=== PATIENT | male | born 1990 | race Caucasian/White ===

== ENCOUNTER 2016-05-29 08:58 | Emergency (ER) | payer OTHER ==
[~2016-05-29] VITALS: Wt 120.0 kg
[2016-05-29] MEDS ORDERED: IBUP-1542 PO (09:15)
[2016-05-29] MEDS ORDERED: PEN500 PO (09:15)
[2016-05-29] MEDS ORDERED: GUAI-637 PO (09:17)
[2016-05-29] MEDS ORDERED: IBUPROFEN 800 MG TAB PO ONE (09:30)
--- NOTE | 2016-05-29 09:33 | ERD ---
ER Documentation Chief Complaint Date/Time DATE: 05/29/16 TIME: 09:10 Chief Complaint SORE THROAT X 3 DAYS HPI 26 y/o male presents to ED for sore throat for 3 days. Pain was described as achy, nonradiating, 7/10 in rate. Also reports productive cough, congestion for 3 days. Exposed to mother who is the same symptoms. Did not take any medications for his symptoms. Denies headache, loss of consciousness, dizziness, blurry vision, changes in vision, photophobia, facial pain, ear pain, difficulty swallowing, neck pain, neck stiffness, shoulder pain, chest pain, hemoptysis, abdominal pain, back pain , loss of appetite, nausea, vomiting, hematochezia, diarrhea, constipation, urinary symptoms, bladder and bowel incontinences, extremity weakness, extremity tenderness, numbness or tingling sensation, difficulty walking, recent travel, recent antibiotic use in the last 3 months, fever, chills. 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 Smokes 1 pack of cigarette a week. Drinks 6 pack of beer a week. Smokes marijuana, also admits that sometimes he just an edible marijuana. ROS All systems reviewed and are negative except as per history of present illness. Medications Home Meds Active Scripts Guaifenesin* (Robitussin*) 100 Mg/5 Ml Syrup, 100 MG PO Q4H Y for COUGH, #100 ML Prov:PASILABAN,KLAR F 05/29/16 Ibuprofen* (Motrin*) 600 Mg Tab, 600 MG PO Q6 Y for PAIN, #30 TAB Prov:PASILABAN,KLAR F 05/29/16 Penicillin V Potassium* (Penicillin V K*) 500 Mg Tab, 500 MG PO BID for 14 Days , TAB Prov:PASILABAN,KLAR F 05/29/16 Allergies Allergies: Coded Allergies: No Known Allergy (Unverified , 05/29/16) PMhx/Soc Denies Medical and Surgical Hx: pt denies Medical Hx, pt denies Surgical Hx Hx Alcohol Use: Yes (6 pack/ wk) Hx Substance Use: Yes (marijuana ) Hx Tobacco Use: Yes (pack/day) Smoking Status: Current every day smoker Physical Exam Vitals Vital Signs Date Time Temp Pulse Resp B/P Pulse Ox O2 Delivery O2 Flow Rate FiO2 05/29/16 09:01 99.0 129 18 131/89 99 Physical Exam CONSTITUTIONAL: Well-appearing; well-nourished; in no apparent distress. HEAD: Normocephalic; atraumatic. EYES: Conjunctiva clear, sclera non-icteric, EOM intact. PERRL Ears: Hearing intact. EACs clear, TMs non-bulging, non-inflamed, translucent & mobile, ossicles normal appearance, No obstructions, no erythema, no discharges Nose: No obstructions. No polyps. No external lesions. No external lesions, septum and turbinates normal. No rhinorrhea. No discharges. Frontal sinus is non -tender to palpation. Maxillary sinus is non-tender to palpation. Mild congestion. MOUTH: Moist mucous membranes, no lesion, no obstructions, no vesicles, no thrush, patent airway Throat: Uvula in midline and nondisplaced. Right tonsil is +2 with erythema, mild exudate. Left tonsil is +2 with erythema, mild exudate. Tolerating secretions well. No difficulty swallowing. Good gag reflex. Patent airway. Neck: Supple, without lesions, bruits, or adenopathy. No mass. Thyroid non- enlarged and non-tender to palpation. CHEST: Symmetrical chest. Respirations even and not labored. No retractions noted. CARDIOVASCULAR: Normal S1, S2. RRR. No murmurs, gallops. RESPIRATORY: Normal chest excursion with respiration; breath sounds clear and equal bilaterally; no wheezes, rhonchi, or rales. Breathing even and unlabored. Speaking in clear, full, and complete sentences w/ ease. ABDOMEN: Normal bowel sounds normal. Soft, round, non-distended, non-guarding, no tenderness, no rebound, no organomegaly, no masses, no pulsating abdominal mass. No hernia. No peritoneal signs. : No CVA tenderness. BACK: Symmetrical shoulder. Spine is midline without deformity, tenderness. No evidence of trauma or deformity. PELVIS: Stable pelvis. No evidence of trauma or deformity. MUSCULOSKELETAL: Normal gait and station. No misalignment, asymmetry, crepitation, defects, tenderness, masses, effusions, decreased range of motion, instability, atrophy or abnormal strength or tone in the head, neck, spine, ribs , pelvis or extremities. No calf tenderness. NEUROVASCULAR: Distal pulses are present. Pedal pulse are present, equal, and normal. Capillary refills are < 2 seconds. NEUROLOGIC: Alert and oriented x4. Speaks full and clear sentences. Cranial Nerves II-XII normal. Sensation to pain, touch, and proprioception normal. Grossly unremarkable. No neurologic deficits. Romberg test is negative. PSYCHOLOGICAL: The patients mood and manner are appropriate. No hallucinations , delusions. Not SI. Not HI. Has the capacity to decide for self SKIN: Normal for age and ethnicity; warm; dry; good turgor; no apparent lesions or exudates. No rashes, hives, discoloration. Intact. Procedures/MDM Examination: Unremarkable examination except mild congestion, tonsils are +2 bilaterally, with exudates. Disease process, medical treatment was explained to the patient and family member. They verbalized understanding and agreed with the medical treatment, and follow-up care. Treatment: Motrin Re-evaluation: Denies pain Consultation: None Differential diagnosis: Peritonsillar abscess versus strep pharyngitis versus viral pharyngitis versus sinusitis versus upper respiratory infection. Medical decision makin26 y/o male presents to ED for sore throat for 3 days. I have a low suspicion for peritonsillar abscess because patient's uvula is in midline and nondisplaced, tonsils are +2 bilaterally with exudates, no difficulty swallowing, tolerating secretions. Also have low suspicion for sinusitis due to patient is no frontal and maxillary sinus tenderness on palpation. Low suspicion for viral pharyngitis due to patient has exudates on his tonsils, reports chills last night. Final diagnosis of strep pharyngitis, prescribed with amoxicillin, Robitussin, Motrin Medications prescribed are the following: Penicillin, Robitussin, Motrin Patient and family member are made aware of the side effects and adverse reactions of the medications prescribed. Instructed on when to seek emergent and medical attention in case allergic/anaphylactic reactions or severe side effects and or adverse reactions to medications. Patient and family member verbalized understanding. Patient instructed Instructed to follow-up with his PCP in 24-48 hours. Instructed to Call 911 for chest pain, shortness of breath. Advised to come back here in ED as soon as possible for severity of symptoms which includes but not limited to: any new symptoms; shortness of breath/difficulty of breathing; cardiovascular changes; severe gastrointestinal symptoms; signs and symptoms of bleeding and or infection; signs of compartment syndrome/neurovascular changes; neurological changes/deficits. Patient and family member verbalized understanding. Upon discharge, patient is alert and oriented x 4, speaks full and clear sentences, tolerating secretions, no difficulty swallowing, denies pain, has no neurological deficits, has no neurovascular deficits, difficulty of breathing. Heart rate has regular rate and rhythm. Breathing even and unlabored. Lung sounds are clear to auscultation. Not in distress. Appears comfortable. Ambulatory with steady gait. Appears satisfied with care provided here in ED. Departure Diagnosis: Primary Impression: Strep pharyngitis Condition: Good Patient Instructions: Preventing Common Respiratory Infections, Pharyngitis, Strep (Presumed) Referrals: [facility] YOU HAVE RECEIVED A MEDICAL SCREENING EXAM AND THE RESULTS INDICATE THAT YOU DO NOT HAVE A CONDITION THAT REQUIRES URGENT TREATMENT IN THE EMERGENCY DEPARTMENT. FURTHER EVALUATION AND TREATMENT OF YOUR CONDITION CAN WAIT UNTIL YOU ARE SEEN IN YOUR DOCTORS OFFICE WITHIN THE NEXT 1-2 DAYS. IT IS YOUR RESPONSIBILITY TO MAKE AN APPOINTMENT FOR FOLOW-UP CARE. IF YOU HAVE A PRIMARY DOCTOR --you should call your primary doctor and schedule an appointment IF YOU DO NOT HAVE A PRIMARY DOCTOR YOU CAN CALL OUR PHYSICIAN REFERRAL HOTLINE AT IF YOU CAN NOT AFFORD TO SEE A PHYSICIAN YOU CAN CHOSE FROM THE FOLLOWING [facility] [address] [facility]. [facility] [address] [facility] [address] [facility] [address] [facility] [address] [facility]. [facility]. [address] Additional Instructions: Patient instructed Instructed to follow-up with his PCP in 24-48 hours. Instructed to Call 911 for chest pain, shortness of breath. Advised to come back here in ED as soon as possible for severity of symptoms which includes but not limited to: any new symptoms; shortness of breath/difficulty of breathing; cardiovascular changes; severe gastrointestinal symptoms; signs and symptoms of bleeding and or infection; signs of compartment syndrome/neurovascular changes; neurological changes/deficits. Patient and family member verbalized understanding. CLAUDIA ZHOU May 29, 2016 09:32
== END 2016-05-29 09:27 | disposition home or self-care (01) ==
LOC: FTE 08:58
DX: J02.0 Streptococcal pharyngitis (principal); F17.210 Nicotine dependence, cigarettes, uncomplicated
CPT/HCPCS: Z7502; Z7610; 99283

== ENCOUNTER 2016-10-08 13:12 | Emergency (ER) | payer OTHER ==
[~2016-10-08] VITALS: Ht 185.4 cm; Wt 100.5 kg
[~2016-10-08 13:12] MED LIST: GUAI-637 PO; IBUP-1542 PO; PEN500 PO
[2016-10-08 13:29] VITALS: Ht 185.4 cm; Wt 100.5 kg
[2016-10-08] MEDS ORDERED: ONDANSETRON 4 MG INJ IV STA (14:11)
[2016-10-08] MEDS ORDERED: SOD CHLORIDE 0.9% 1,000 ML IV STA (14:11)
[2016-10-08] MEDS ORDERED: morphine 4 MG/ML VIAL IV STA (14:11)
[2016-10-08] MEDS ORDERED: SOD CHLORIDE 0.9% 1,000 ML IV ONE (14:30)
[2016-10-08 14:52] LABS: ADD SCAN DIFF NO
[2016-10-08 14:53] LABS: BASOPHIL # 0.1 10^3/ul (0.0-0.1); BASOPHILS % 0.6 % (0.0-2.0); EOSINOPHILS # 0.1 10^3/ul (0.0-0.5); EOSINOPHILS % 0.5 % (0.0-7.0); HEMATOCRIT 48.3 % (42.0-52.0); HEMOGLOBIN 16.5 g/dl (14.0-18.0); LYMPHOCYTES # 2.9 10^3/ul (0.8-2.9); LYMPHOCYTES % 24.2 % (15.0-51.0); MEAN CORPUSCULAR HEMOGLOBIN 29.3 pg (29.0-33.0); MEAN CORPUSCULAR HGB CONC 34.2 g/dl (32.0-37.0); MEAN CORPUSCULAR VOLUME 85.6 fl (82.0-101.0); MONOCYTE # 1.1 10^3/ul (0.3-0.9); MONOCYTES % 9.1 % (0.0-11.0); NEUTROPHIL # 7.8 10^3/ul (1.6-7.5); PLATELET COUNT 337 10^3/UL (140-415); RED BLOOD COUNT 5.64 10^6/ul (4.70-6.10); RED CELL DISTRIBUTION WIDTH 11.7 % (11.5-14.5)
[2016-10-08 15:12] LABS: ALBUMIN 5.3 g/dl (3.3-4.9); ALBUMIN/GLOBULIN RATIO 1.76; BILIRUBIN,INDIRECT 0.6 mg/dl (0-1.1); BILIRUBIN,TOTAL 0.6 mg/dl (0.2-1.3); CALCIUM 9.7 mg/dl (8.4-10.2); CREATININE 0.94 mg/dl (0.61-1.24); POTASSIUM 3.9 mmol/L (3.5-5.1); TOTAL PROTEIN 8.3 g/dl (6.1-8.1)
[2016-10-08 15:13] LABS: ADD UMIC YES; URINE BILIRUBIN (Dip) NEGATIVE (NEGATIVE); URINE BLOOD (Dip) TRACE (NEGATIVE); URINE COLOR LT. YELLOW (YELLOW); URINE GLUCOSE (Dip) NEGATIVE (NEGATIVE); URINE KETONES (Dip) NEGATIVE (NEGATIVE); URINE LEUKOCYTE ESTERASE (Dip) NEGATIVE (NEGATIVE); URINE NITRITE (Dip) NEGATIVE (NEGATIVE); URINE TOTAL PROTEIN (Dip) NEGATIVE (NEGATIVE); URINE UROBILINOGEN (Dip) 0.2 E.U./dL (0.1-1.0)
[2016-10-08 15:20] LABS: URINE RBCS 0-2 /HPF (0)
[2016-10-08] MEDS ORDERED: KETOROLAC 30 MG INJ IV STA (15:29)
[2016-10-08] MEDS ORDERED: LOPERAMIDE 2 MG CAP PO ONE (15:30)
[2016-10-08] MEDS ORDERED: ONDA4TAB14 PO (15:35)
[2016-10-08] MEDS ORDERED: NAPR-688 PO (15:35)
[2016-10-08] MEDS ORDERED: DIPH1TAB PO (15:35)
--- NOTE | 2016-10-08 15:40 | ERD ---
ER Documentation Chief Complaint Date/Time DATE: 10/08/16 TIME: 15:39 Chief Complaint excessive diarrhea with blood in the stool x 1 month HPI 26 year old male with intermittent diarrhea x 1 month. This has been on and off. Patient drinks beer almost every day. Did not drink today. Occasional nausea. Today there was some blood streaking in his diarrhea with some mucus. Denies fevers, chils, malaise. No current abd pain. Has not been on antibiotics any time recently. ROS All systems reviewed and are negative except as per history of present illness. Medications Home Meds Active Scripts Naproxen* (Naproxen*) 500 Mg Tablet, 500 MG PO BID Y for PAIN, #20 TAB Prov:HUNG GUEVARA DO 10/08/16 Ondansetron (Ondansetron Odt) 4 Mg Tab.rapdis, 4 MG PO Q6H Y for NAUSEA AND/OR VOMITING, #10 TAB Prov:PAOLAHUNG DO 10/08/16 Diphenoxylate HCl/Atropine (Lomotil 2.5-0.025 mg Tablet) 1 Each Tablet, 1 TAB PO Q6H Y for DIARRHEA, #14 TAB Prov:HUNG GUEVARA DO 10/08/16 Discontinued Scripts Guaifenesin* (Robitussin*) 100 Mg/5 Ml Syrup, 100 MG PO Q4H Y for COUGH, #100 ML Prov:CLAUDIA ZHOU F 05/29/16 Ibuprofen* (Motrin*) 600 Mg Tab, 600 MG PO Q6 Y for PAIN, #30 TAB Prov:CLAUDIA ZHOU F 05/29/16 Penicillin V Potassium* (Penicillin V K*) 500 Mg Tab, 500 MG PO BID for 14 Days , TAB Prov:PASILABANJAVIAR F 05/29/16 Allergies Allergies: Coded Allergies: No Known Allergy (Unverified , 05/29/16) PMhx/Soc Medical and Surgical Hx: pt denies Medical Hx, pt denies Surgical Hx Hx Alcohol Use: No Hx Substance Use: Yes (marijuana ) Hx Tobacco Use: Yes (pack/day) Smoking Status: Current some day smoker Physical Exam Vitals Vital Signs Date Time Temp Pulse Resp B/P Pulse Ox O2 Delivery O2 Flow Rate FiO2 10/08/16 16:09 101 10/08/16 13:29 98.4 127 18 130/90 98 Physical Exam Const: [] No distress Head: Atraumatic Eyes: Normal Conjunctiva ENT: Normal External Ears, Nose and Mouth. Neck: Full range of motion..~ No meningismus. Resp: Clear to auscultation bilaterally Cardio: Regular tachycardia, no murmurs Abd: Soft, non tender, non distended. Normal bowel sounds Skin: No petechiae or rashes Back: No midline or flank tenderness Ext: No cyanosis, or edema Neur: Awake and alert and oriented x 3, no focal defecits. Psych: Normal Mood and Affect Result Diagram: 10/08/16 1430 10/08/16 1430 Results 24 hrs Laboratory Tests Test 10/08/16 14:30 10/08/16 14:45 White Blood Count 12.010^3/ul Red Blood Count 5.6410^6/ul Hemoglobin 16.5g/dl Hematocrit 48.3% Mean Corpuscular Volume 85.6fl Mean Corpuscular Hemoglobin 29.3pg Mean Corpuscular Hemoglobin Concent 34.2g/dl Red Cell Distribution Width 11.7% Platelet Count 97987^3/UL Mean Platelet Volume 9.0fl Neutrophils % 65.0% Lymphocytes % 24.2% Monocytes % 9.1% Eosinophils % 0.5% Basophils % 0.6% Nucleated Red Blood Cells % 0.0/100WBC Neutrophils # 7.810^3/ul Lymphocytes # 2.910^3/ul Monocytes # 1.110^3/ul Eosinophils # 0.110^3/ul Basophils # 0.110^3/ul Nucleated Red Blood Cells # 0.010^3/ul Sodium Level 138mmol/L Potassium Level 3.9mmol/L Chloride Level 103mmol/L Carbon Dioxide Level 23mmol/L Anion Gap 16 Blood Urea Nitrogen 15mg/dl Creatinine 0.94mg/dl Glucose Level 105mg/dl Calcium Level 9.7mg/dl Total Bilirubin 0.6mg/dl Direct Bilirubin 0.00mg/dl Indirect Bilirubin 0.6mg/dl Aspartate Amino Transf (AST/SGOT) 49IU/L Alanine Aminotransferase (ALT/SGPT) 102IU/L Alkaline Phosphatase 79IU/L Total Protein 8.3g/dl Albumin 5.3g/dl Globulin 3.00g/dl Albumin/Globulin Ratio 1.76 Lipase 49U/L Urine Color LT. YELLOW Urine Clarity CLEAR Urine pH 5.5 Urine Specific [place] <=1.005 Urine Ketones NEGATIVE Urine Nitrite NEGATIVE Urine Bilirubin NEGATIVE Urine Urobilinogen 0.2 E.U./dL Urine Leukocyte Esterase NEGATIVE Urine Microscopic RBC 0-2/HPF Urine Microscopic WBC 0-2/HPF Urine Epithelial Cells RARE Urine Hemoglobin TRACE Urine Glucose NEGATIVE% Urine Total Protein NEGATIVE Current Medications Medications (Trade) Dose Ordered Sig/Johny Route PRN Reason Start Time Stop Time Status Last Admin Dose Admin Sodium Chloride (NS) 1,000 ml @ 1,000 mls/hr Q1H STAT IV 10/08/16 14:11 10/08/16 15:10 DC 10/08/16 14:58 Morphine Sulfate (morphine) 4 mg ONCE STAT IV 10/08/16 14:11 10/08/16 14:14 DC Ondansetron HCl 4 mg 4 mg ONCE STAT IV 10/08/16 14:11 10/08/16 14:14 DC Sodium Chloride (NS) 1,000 ml @ 1,000 mls/hr Q1H ONCE IV 10/08/16 14:30 10/08/16 15:29 DC 10/08/16 14:58 Loperamide HCl (Imodium Cap) 2 mg ONCE ONCE PO 10/08/16 15:30 10/08/16 15:31 DC Ketorolac Tromethamine (Toradol) 30 mg ONCE STAT IV 10/08/16 15:29 10/08/16 15:31 DC Procedures/MDM Diarhea on and off for 1 month. Possible secondary to enteritis plus or minus intestinal irritation from constant alcohol exposre. Mild leukocytosis with benign physical exam, no anion gap, well appearing. Mild LFT elevaton. Doubt C diff with no antibiotics. Tachycardia resolved with IV fluid administration. Alos give zofran, lomotil, torradol. Feeling much better. Discargin with primary follow up for further workup and return precautions if systems persist. counceled on alcohol cessation. Departure Diagnosis: Primary Impression: Diarrhea with dehydration Condition: Stable Patient Instructions: Diarrhea, Viral (Child) (Adult) Referrals: [facility] YOU HAVE RECEIVED A MEDICAL SCREENING EXAM AND THE RESULTS INDICATE THAT YOU DO NOT HAVE A CONDITION THAT REQUIRES URGENT TREATMENT IN THE EMERGENCY DEPARTMENT. FURTHER EVALUATION AND TREATMENT OF YOUR CONDITION CAN WAIT UNTIL YOU ARE SEEN IN YOUR DOCTORS OFFICE WITHIN THE NEXT 1-2 DAYS. IT IS YOUR RESPONSIBILITY TO MAKE AN APPOINTMENT FOR FOLOW-UP CARE. IF YOU HAVE A PRIMARY DOCTOR --you should call your primary doctor and schedule an appointment IF YOU DO NOT HAVE A PRIMARY DOCTOR YOU CAN CALL OUR PHYSICIAN REFERRAL HOTLINE AT IF YOU CAN NOT AFFORD TO SEE A PHYSICIAN YOU CAN CHOSE FROM THE FOLLOWING [facility] CLINICS [facility] [address] [facility] [facility] [address] [facility] [address] [facility] [address] [facility]. [facility] [address] [facility] [facility]. [address] Additional Instructions: Call your primary care doctor TOMORROW for an appointment during the next 2-3 days.See the doctor sooner or return here if your condition worsens before your appointment time. HUNG GUEVARA DO Oct 08, 2016 15:40
[2016-10-08 16:09] VITALS: PULSE 101
== END 2016-10-08 16:15 | disposition home or self-care (01) ==
LOC: E/R 13:12
DX: R19.7 Diarrhea, unspecified (principal); E86.0 Dehydration; F17.210 Nicotine dependence, cigarettes, uncomplicated; R11.0 Nausea
CPT/HCPCS: 36415; 80053; 81001; 83690; 85025; J7030; Z7502

== ENCOUNTER 2016-12-22 04:44 | Emergency (ER) | payer OTHER ==
[~2016-12-22] VITALS: Ht 180.3 cm; Wt 98.2 kg
[~2016-12-22 04:44] MED LIST changes: +DIPH1TAB PO; +NAPR-688 PO; +ONDA4TAB14 PO
[2016-12-22 04:48] VITALS: Ht 180.3 cm; Wt 98.2 kg
[2016-12-22] MEDS ORDERED: KETOROLAC 60 MG INJ IM STA (05:10)
[2016-12-22] MEDS ORDERED: IBUP-1542 PO (05:12)
[2016-12-22] MEDS ORDERED: PEN500 PO (05:12)
--- NOTE | 2016-12-22 05:19 | ERD ---
ER Documentation Chief Complaint Date/Time DATE: 12/22/16 TIME: 05:15 Chief Complaint c/o ST/ tonsils since yesterday. denies sob HPI 26-year-old male presents in emergency department for complaints of sore throat started yesterday. Patient described the pain as sharp pain, 6/10 scale, worse upon swallowing. Patient also started to have fever. Patient did not take any medications to symptoms. Patient does not have any stridor or shortness of breath. ROS All systems reviewed and are negative except as per history of present illness. Medications Home Meds Active Scripts Penicillin V Potassium* (Penicillin V K*) 500 Mg Tab, 500 MG PO QID for 10 Days , TAB Prov:DWIGHT SHERIDAN NP 12/22/16 Ibuprofen* (Motrin*) 600 Mg Tab, 600 MG PO Q6H Y for PAIN AND OR ELEVATED TEMP, #30 TAB Prov:DWIGHT SHERIDAN [employer] 12/22/16 Naproxen* (Naproxen*) 500 Mg Tablet, 500 MG PO BID Y for PAIN, #20 TAB Prov:HUNG GUEVARA DO 10/08/16 Ondansetron (Ondansetron Odt) 4 Mg Tab.rapdis, 4 MG PO Q6H Y for NAUSEA AND/OR VOMITING, #10 TAB Prov:HUNG GUEVARA DO 10/08/16 Diphenoxylate HCl/Atropine (Lomotil 2.5-0.025 mg Tablet) 1 Each Tablet, 1 TAB PO Q6H Y for DIARRHEA, #14 TAB Prov:HUNG GUEVARA DO 10/08/16 Allergies Allergies: Coded Allergies: No Known Allergy (Unverified , 05/29/16) PMhx/Soc Medical and Surgical Hx: pt denies Medical Hx, pt denies Surgical Hx History of Surgery: No Anesthesia Reaction: No Hx Neurological Disorder: No Hx Respiratory Disorders: No Hx Cardiac Disorders: No Hx Psychiatric Problems: No Hx Miscellaneous Medical Probl: No Hx Alcohol Use: No Hx Substance Use: No Hx Tobacco Use: No Smoking Status: Former smoker FmHx Family History: No coronary disease, No diabetes, No other Physical Exam Vitals Vital Signs Date Time Temp Pulse Resp B/P Pulse Ox O2 Delivery O2 Flow Rate FiO2 12/22/16 06:50 98.0 12/22/16 05:41 101.4 129 19 125/64 98 Room Air 12/22/16 04:48 100.5 133 20 119/70 98 Physical Exam GENERAL: The patient is well developed and appropriate for usual state of health, in no apparent distress. HEENT: Atraumatic. Ears: Normal tympanic membrane, no erythema or bulging. No ear canal swelling. No ear discharge. Nose: normal nasal turbinates, no erythema or swelling. Normal nasal discharge. Throat: oropharynx erythematous with bilateral +11 tonsillar swelling and tonsillar exudates noted. No lymphadenopathy. CHEST: Clear to auscultation bilaterally. There are no rales, wheezes or rhonchi. HEART: Regular rate and rhythm. No murmurs, clicks, rubs or gallops. No S3 or S4. ABDOMEN: Soft, nontender and nondistended. Good bowel sounds. No rebound or guarding. No gross peritonitis. No gross organomegaly or masses. No Morocho sign or McBurney point tenderness. BACK: No midline or flank tenderness. EXTREMITIES: Equal pulses bilaterally. There is no peripheral clubbing, cyanosis or edema. No focal swelling or erythema. Full range of motion. Grossly neurovascularly intact. NEURO: Alert and oriented. Cranial nerves 2-12 intact. Motor strength in all 4 extremities with 5/5 strength. Sensation grossly intact. Normal speech and gait. SKIN: There is no apparent rash or petechia. The skin is warm and dry. HEMATOLOGIC AND LYMPHATIC: There is no evidence of excessive bruising or lymphedema. No gross cervical, axillary, or inguinal lymphadenopathy. Results 24 hrs Current Medications Medications (Trade) Dose Ordered Sig/Johny Route PRN Reason Start Time Stop Time Status Last Admin Dose Admin Ketorolac Tromethamine (Toradol) 60 mg ONCE STAT IM 12/22/16 05:10 12/22/16 05:11 DC 12/22/16 05:18 Acetaminophen (Tylenol Tab) 650 mg ONCE ONCE PO 12/22/16 05:30 12/22/16 05:31 DC 12/22/16 05:18 Acetaminophen (Tylenol Tab) 325 mg ONCE ONCE PO 12/22/16 06:00 12/22/16 06:01 DC 12/22/16 06:10 Patient was given medicines for fever control here in the emergency department. After treatment, patient temperature improved and lower. Patient appears well and is hemodynamically stable. Procedures/MDM Medical decision making: Patient symptoms is likely consistent with acute bacterial pharyngitis, most likely strep throat. Low suspicion for peritonsillar abscess, mononucleosis, no symptoms of epiglottitis, laryngitis. No oral airway obstruction noted. No symptoms of sepsis at this time. Patient appears well and is hemodynamically stable. Patient was given for PEN VK, ibuprofen,, is advised to follow-up with primary care doctor in 2-3 days for reevaluation of symptoms. Patient is advised to do salt water gargles. Patient is advised to return to emergency department for worsening symptoms. Disposition: Home. Stable. Disclaimer: Inadvertent spelling and grammatical errors are likely due to EHR/ dictation software use and do not reflect on the overall quality of patient care. Also, please note that the electronic time recorded on this note does not necessarily reflect the actual time of the patient encounter. Departure Diagnosis: Primary Impression: Strep tonsillitis Condition: Stable Patient Instructions: Strep Throat DWIGHT SHERIDAN NP Dec 22, 2016 05:18
[2016-12-22] MEDS ORDERED: ACETAMINOPHEN 325 MG TAB PO ONE ×2 (05:30→06:00)
[2016-12-22 05:41] VITALS: BP 125/64; PULSE 129; RESP 19
[2016-12-22 06:50] VITALS: TEMP 98
== END 2016-12-22 06:58 | disposition home or self-care (01) ==
LOC: FTE 04:44
DX: J03.00 Acute streptococcal tonsillitis, unspecified (principal); Z87.891 Personal history of nicotine dependence
CPT/HCPCS: 96372; J1885; Z7502; Z7610

== ENCOUNTER 2017-04-01 04:54 | Emergency (ER) | payer OTHER ==
[~2017-04-01] VITALS: Ht 180.3 cm; Wt 105.0 kg
[~2017-04-01 04:54] MED LIST changes: -GUAI-637 PO; -PEN500 PO; +PENI500T PO
[2017-04-01 05:00] VITALS: Ht 180.3 cm; Wt 105.0 kg
[2017-04-01] MEDS ORDERED: HYDR-902 PO (05:30)
[2017-04-01] MEDS ORDERED: CLINDAMYCIN 300 MG INJ IM ONE ×2 (05:30→05:41)
[2017-04-01] MEDS ORDERED: IBUP800T25 PO (05:30)
[2017-04-01] MEDS ORDERED: AMOX1TAB10 PO (05:30)
[2017-04-01] MEDS ORDERED: CLINDAMYCIN 900 MG INJ IM ONE (05:30)
--- NOTE | 2017-04-01 05:33 | ERD ---
ER Documentation Chief Complaint Chief Complaint sore throat x 1 day HPI Patient complains of sore throat onset last night at 7 PM mostly located on the left side. The patient says he has not had a fever. Patient describes the pain as a dull ache and worse when he swallows. No changes in his voice no swelling in his neck no pain in the ear no difficulty swallowing secretions. ROS All systems reviewed and are negative except as per history of present illness. Medications Home Meds Active Scripts Ibuprofen* (Motrin*) 800 Mg Tab, 800 MG PO Q6H Y for PAIN AND OR ELEVATED TEMP, #30 TAB Prov:APRIL ARDFORD DO 04/01/17 Hydrocodone/Acetaminophen ([place] 10-325 Tablet) 1 Each Tablet, 1 TAB PO Q6H Y for PAIN, #20 TAB Prov:APRIL RADFORD DO 04/01/17 Amoxicillin/Potassium Clav (Amox-Clav 875-125 mg Tablet) 875-125 mg Tab, 1 TAB PO BID for 7 Days, #14 TAB Prov:APRIL RADFORD DO 04/01/17 Penicillin V Potassium* (Penicillin V K*) 500 Mg Tab, 500 MG PO QID for 10 Days , TAB Prov:DWIGHT SHERIDAN NP 12/22/16 Ibuprofen* (Motrin*) 600 Mg Tab, 600 MG PO Q6H Y for PAIN AND OR ELEVATED TEMP, #30 TAB Prov:DWIGHT SHERIDAN NP 12/22/16 Naproxen* (Naproxen*) 500 Mg Tablet, 500 MG PO BID Y for PAIN, #20 TAB Prov:HUNG GUEVARA DO 10/08/16 Ondansetron (Ondansetron Odt) 4 Mg Tab.rapdis, 4 MG PO Q6H Y for NAUSEA AND/OR VOMITING, #10 TAB Prov:HUNG GUEVARA DO 10/08/16 Diphenoxylate HCl/Atropine (Lomotil 2.5-0.025 mg Tablet) 1 Each Tablet, 1 TAB PO Q6H Y for DIARRHEA, #14 TAB Prov:HUNG GUEVARA DO 10/08/16 Allergies Allergies: Coded Allergies: No Known Allergy (Unverified , 05/29/16) PMhx/Soc History of Surgery: No Anesthesia Reaction: No Hx Neurological Disorder: No Hx Respiratory Disorders: No Hx Cardiac Disorders: No Hx Psychiatric Problems: No Hx Miscellaneous Medical Probl: No Hx Alcohol Use: No Hx Substance Use: No Hx Tobacco Use: No FmHx Family History: No coronary disease Physical Exam Vitals Vital Signs Date Time Temp Pulse Resp B/P Pulse Ox O2 Delivery O2 Flow Rate FiO2 04/01/17 05:00 97.9 110 20 140/83 99 Physical Exam C Const: Well-developed, well-nourished Head: Atraumatic, normocephalic Eyes: Normal Conjunctiva, PERRLA, EOMI, normal sclera, no nystagmus ENT: Normal External Ears, Nose and Mouth, moist mucus membranes, the left peritonsillar region has deep red erythema consistent with peritonsillar cellulitis. On palpation of this area there is no peritonsillar abscess the soft tissue is boggy but there is no fluctuance. Neck: Full range of motion. No meningismus, no lymphadenopathy. Resp: Clear to auscultation bilaterally, no wheezing, rhonchi, rales Cardio: Regular rate and rhythm, no murmurs, S1 S2 present Abd: Soft, non tender x 4, non distended. Normal bowel sounds, no guarding or rebound, no pulsitile abdominal masses or bruits Skin: No petechiae or rashes, no ecchymosis , no maculopapular rash Back: No midline or flank tenderness Ext: No cyanosis, or edema, FROM x 4, normal inspection, neurovascularly intact x 4 Neur: Awake and alert, STR 5/5 x 4, sensation intact x 4, no focal findings, cerebellum intact Psych: Normal Mood and Affect Results 24 hrs Current Medications Medications (Trade) Dose Ordered Sig/Johny Route PRN Reason Start Time Stop Time Status Last Admin Dose Admin Clindamycin Phosphate (Cleocin) 450 mg ONCE ONCE IM 04/01/17 05:30 04/01/17 05:31 DC Clindamycin Phosphate (Cleocin) 450 mg ONCE ONCE IM 04/01/17 05:30 04/01/17 05:31 DC Procedures/MDM We will give 900 mg of clindamycin IM. Told the patient peritonsillar abscess warning signs to return. Discharged with Augmentin Motrin and [place] Departure Diagnosis: Primary Impression: Peritonsillar cellulitis Condition: Stable Patient Instructions: When Your Child Has Pharyngitis or Tonsillitis , Pharyngitis, Strep (Presumed) Referrals: NO PRIMARY,CARE PHYSICIAN (PCP) APRIL RADFORD DO Apr 01, 2017 05:33
== END 2017-04-01 06:23 | disposition home or self-care (01) ==
LOC: FTE 04:54
DX: J36 Peritonsillar abscess (principal)
CPT/HCPCS: 96372; Z7502; Z7610

== ENCOUNTER 2017-04-09 16:22 | Emergency (ER) | payer OTHER ==
[~2017-04-09] VITALS: Ht 182.9 cm; Wt 101.0 kg
[~2017-04-09 16:22] MED LIST changes: +AMOX1TAB10 PO; +HYDR-902 PO; +IBUP800T25 PO
[2017-04-09 16:26] VITALS: Ht 182.9 cm; Wt 101.0 kg
--- NOTE | 2017-04-09 16:41 | ERD ---
ER Documentation Chief Complaint Chief Complaint THROAT PAIN HPI 27-year-old male, returns to the emergency department complaining of persistent sore throat, the patient was diagnosed with strep tonsillitis and was discharged on Augmentin last week, however, the patient states that after 3 days he was feeling much better, therefore, he discontinued the medication. Today, the patient is complaining of worsening sore throat, subjective, fever, headaches. ROS SYSTEMIC symptoms: no fever, no chills, no night sweats, no weight loss EYE symptoms: No blurred vision, no eye discharge OTOLARYNGEAL symptoms: No hearing loss. No ear pain, +sore throat CARDIOVASCULAR symptoms: No chest pain or discomfort, no palpitations. PULMONARY symptoms: No dyspnea, no cough, no wheezing. GASTROINTESTINAL symptoms: No abdominal pain, no nausea, no vomiting, no diarrhea MUSCULOSKELETAL symptoms: No arthralgias, no muscle aches. NEUROLOGY symptoms: No confusion, no syncope, no numbness or tingling. SKIN: No rashes Medications Home Meds Active Scripts Hydrocodone/Acetaminophen ([place] 5-325 Tablet) 1 Each Tablet, 1 TAB PO Q6H Y for PAIN, #12 TAB Prov:VERITO HASSAN MD 04/09/17 Prednisone* (Prednisone*) 20 Mg Tab, 60 MG PO DAILY for 4 Days, TAB Prov:VERITO HASSAN MD 04/09/17 Amoxicillin/Potassium Clav (Amox-Clav 875-125 mg Tablet) 875-125 mg Tab, 1 TAB PO BID for 7 Days, #14 TAB Prov:VERITO HASSAN MD 04/09/17 Ibuprofen* (Motrin*) 800 Mg Tab, 800 MG PO Q6H Y for PAIN AND OR ELEVATED TEMP, #30 TAB Prov:APRIL RADFORD DO 04/01/17 Hydrocodone/Acetaminophen ([place] 10-325 Tablet) 1 Each Tablet, 1 TAB PO Q6H Y for PAIN, #20 TAB Prov:APRIL RADFORD DO 04/01/17 Amoxicillin/Potassium Clav (Amox-Clav 875-125 mg Tablet) 875-125 mg Tab, 1 TAB PO BID for 7 Days, #14 TAB Prov:APRIL RADFORD DO 04/01/17 Penicillin V Potassium* (Penicillin V K*) 500 Mg Tab, 500 MG PO QID for 10 Days , TAB Prov:DWIGHT SHERIDANNasra [employer] 12/22/16 Ibuprofen* (Motrin*) 600 Mg Tab, 600 MG PO Q6H Y for PAIN AND OR ELEVATED TEMP, #30 TAB Prov:DWIGHT SHERIDAN. [employer] 12/22/16 Naproxen* (Naproxen*) 500 Mg Tablet, 500 MG PO BID Y for PAIN, #20 TAB Prov:HUNG GUEVARA 10/08/16 Ondansetron (Ondansetron Odt) 4 Mg Tab.rapdis, 4 MG PO Q6H Y for NAUSEA AND/OR VOMITING, #10 TAB Prov:HUNG GUEVARA 10/08/16 Diphenoxylate HCl/Atropine (Lomotil 2.5-0.025 mg Tablet) 1 Each Tablet, 1 TAB PO Q6H Y for DIARRHEA, #14 TAB Prov:HUNG GUEVARA 10/08/16 Allergies Allergies: Coded Allergies: No Known Allergy (Unverified , 05/29/16) PMhx/Soc History of Surgery: No Anesthesia Reaction: No Hx Neurological Disorder: No Hx Respiratory Disorders: No Hx Cardiac Disorders: No Hx Psychiatric Problems: No Hx Miscellaneous Medical Probl: No Hx Alcohol Use: No Hx Substance Use: No Hx Tobacco Use: No Smoking Status: Never smoker Physical Exam Vitals Vital Signs Date Time Temp Pulse Resp B/P Pulse Ox O2 Delivery O2 Flow Rate FiO2 04/09/17 16:26 97.6 110 18 111/83 98 Physical Exam Patient is in no acute distress, vital signs WNL. Alert and fully oriented. EYES: PERRLA, EOMI, Sclera and conjunctiva appear normal. EARS: Canals clear, tympanic membranes WNL THROAT: Erythematous tonsils, enlarged worse on the left side, with exudate NECK: Supple, + lymphadenopathy. Full ROM without pain or tenderness. HEART: RRR, no rubs, murmurs, clicks or gallops. LUNGS: Clear to auscultation. ABDOMEN: Soft, non-tender without masses or hepatosplenomegaly. Results 24 hrs Current Medications Medications (Trade) Dose Ordered Sig/Johny Route PRN Reason Start Time Stop Time Status Last Admin Dose Admin Clindamycin HCl/ Dextrose (Cleocin 900 Mg/ D5W (Pmx)) 50 ml @ 50 mls/hr ONCE IVPB 04/09/17 17:00 04/09/17 17:59 04/09/17 17:12 Dexamethasone (Decadron) 10 mg ONCE ONCE IV 04/09/17 17:00 04/09/17 17:01 DC 04/09/17 17:08 Procedures/MDM 27 y/o male patient with history of recurrent tonsillitis, presents to the ED c/ o sore throat and fever for 3 days. Vital signs stable T101, Physical exam revealed bilateral suppurative tonsillitis. Differential diagnosis include but not limited to: Mononucleosis, allergies, epiglottitis, retropharyngeal abscess or cellulitis, abscess of the parapharyngeal space, severe tonsillopharyngitis. No evidence of upper airway obstruction. Physical examination and clinical presentation consistent most likely with severe tonsillopharyngitis. During the ED course the patient remained stable, no new complaints. The patient received treatment with IV clindamycin and dexamethasone presenting overall improvement of the symptoms. Results and clinical impression discussed with shunt who agrees with management. The patient is stable to be treated outpatient and will be discharged home with a Rx for Augmentin and prednisone, some side effects of prescribed medications (headache, rash, nausea, vomiting, diarrhea, drowsiness, habituation, bleeding, hypertension, interactions with other medications) were reviewed. The patient was instructed to follow up with the primary care provider in the next 48h. If symptoms persist, worsen or new symptoms develop, then patient should return to the ED immediately. Instructions explained and given directly by me to the patient in [place]o with acknowledgment and demonstrated understanding. Disclaimer: Inadvertent spelling and grammatical errors are likely due to EHR/ dictation software use and do not reflect on the overall quality of patient care. Also, please note that the electronic time recorded on this note does not necessarily reflect the actual time of the patient encounter. Departure Diagnosis: Primary Impression: Acute suppurative tonsillitis Additional Impression: Poor compliance with medication Condition: Stable Additional Instructions: Call your primary care doctor TOMORROW for an appointment during the next 1-2 days. See the doctor sooner or return here if your condition worsens before your appointment time. Thank you very much for allowing us to participate in your care. Your health and safety is our top priority at [facility]. Have prescriptions filled and follow precisely the directions on the label. Follow-up with primary care provider during the next 4 days and bring all the information and medications prescribed. If illness has not improved in 2 days, then make an appointment with primary care provider. If the provider is unavailable, return to the Emergency Department immediately. VERITO HASSAN MD Apr 09, 2017 16:41
[2017-04-09] MEDS ORDERED: CLINDAMYCIN 900 MG/D5W (PMX) 50 ML IVPB SCH (17:00)
[2017-04-09] MEDS ORDERED: DEXAMETHASONE 10 MG/ML 1 ML INJ IV ONE (17:00)
[2017-04-09] MEDS ORDERED: HYDR-906 PO (17:34)
[2017-04-09] MEDS ORDERED: AMOX1TAB10 PO (17:34)
[2017-04-09] MEDS ORDERED: PRED20TA PO (17:34)
== END 2017-04-09 17:51 | disposition home or self-care (01) ==
LOC: FTE 16:22
DX: J03.90 Acute tonsillitis, unspecified (principal); Z91.14 Patient's other noncompliance with medication regimen
CPT/HCPCS: 96374; 96375; J1100; Z7502; Z7610